=== PATIENT | male | born 1980 | race Caucasian/White ===

== ENCOUNTER 2016-12-15 14:00 | Emergency (ER) | payer BC ==
[~2016-12-15] VITALS: Ht 175.3 cm; Wt 83.0 kg
[2016-12-15] MEDS ORDERED: HYDROmorphone INJ 2 MG/ML SYR/VIAL ONE (14:01)
[2016-12-15] MEDS ORDERED: RAPID SEQUENCE INDUCTION BAG ONE (14:02)
[2016-12-15] MEDS ORDERED: SODIUM CHLORIDE 0.9% 1000ML 1,000 ML IV STA (14:02)
[2016-12-15] MEDS ORDERED: HYDROmorphone INJ 1 MG/ML SYR IV STA ×2 (14:02→14:28)
[2016-12-15] MEDS ORDERED: METOCLOPRAMIDE HCL INJ 5 MG/ML 2 ML VIAL IV STA (14:02)
[2016-12-15] MEDS ORDERED: KETAMINE HCL INJ 50 MG/ML 10 ML VIAL IV ONE (14:02)
[2016-12-15] MEDS ORDERED: KETAMINE HCL INJ 50 MG/ML 10 ML VIAL IV STA (14:03)
[2016-12-15] MEDS ORDERED: PROPOFOL IV EMULSION 10 MG/ML 20 ML VIAL IV STA (14:03)
[2016-12-15] MEDS ORDERED: KETAMINE HCL INJ 50 MG/ML 10 ML VIAL ONE (14:04)
[2016-12-15] MEDS ORDERED: PROPOFOL IV EMULSION 10 MG/ML 20 ML VIAL IV ONE (14:04)
[2016-12-15 14:14] VITALS: Ht 175.3 cm; Wt 83.0 kg
[2016-12-15 14:20] VITALS: BP 144/93; PULSE 95; O2SAT 98
[2016-12-15 14:20] LABS: BASO % 0.2 %; BASO ABS # 0.02 K/uL (0-0.2); COMPLETE YES; EOS % 0.5 %; HEMATOCRIT 47.2 % (42-52); IG% 0.3 %; LYMPH % 14.3 %; LYMPH ABS # 1.67 K/uL (1.2-3.4); MEAN CELL VOLUME 87.6 fL (80-100); MEAN CORPUSCULAR HEMOGLOBIN 30.2 pg (25-34); MEAN CORPUSCULAR HGB CONC 34.5 g/dl (32-36); MEAN PLATELET VOLUME 10.3 fL (7.4-10.4); MONO % 4.1 %; NEUT % 80.6 %; PLATELET COUNT 180 K/uL (130-400); RED BLOOD COUNT 5.39 M/uL (4.7-6.1); WHITE BLOOD COUNT 11.71 K/uL (4.8-10.8)
--- NOTE | 2016-12-15 14:22 | DIAGNOSTIC IMAGING REPORT ---
LEFT ANKLE MIN 3 VIEWS ROUTINE CLINICAL HISTORY: Pt c/ol eft ankle pain trauma. Pain. COMPARISON: None. DISCUSSION: Transverse fracture distal tibia through the growth plate. Oblique fracture with moderate distraction distal fibular shaft. Possible posterior malleolar fracture. Subtalar joint is intact. Small avulsion posterior talus. Generalized soft tissue edema. IMPRESSION: 1. Transverse nondisplaced fracture through the distal tibial growth plate. 2. Oblique fracture distal fibula. 3. Probable nondisplaced cortical fracture posterior malleolus. Electronically signed by: Luis Antunez M.D. 12/15/2016 2:21 PM Dictated Date/Time: 12/15/2016 2:18 PM
--- NOTE | 2016-12-15 14:24 | DIAGNOSTIC IMAGING REPORT ---
LEFT TIBIA/FIBULA 2 VIEWS ROUTINE CLINICAL HISTORY: Pt c/o LLE pain COMPARISON: None. DISCUSSION: Fracture of the ankle and distal fibula as has been described previously. The proximal tibia as well as fibula. Unremarkable. There is no evidence for soft tissue swelling. IMPRESSION: Fracture left ankle which of been previously described. The more proximal bony structures are unremarkable. Electronically signed by: Luis Antunez M.D. 12/15/2016 2:22 PM Dictated Date/Time: 12/15/2016 2:21 PM
[2016-12-15] MEDS ORDERED: KETOROLAC TROMETHAMINE 30 MG/ML VIAL IV STA (14:28)
[2016-12-15] MEDS ORDERED: OXYC-57 PO (14:33)
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
[2016-12-15 14:42] LABS: ALKALINE PHOSPHATASE 55 U/L (45-117); ALT/SGPT 34 U/L (12-78); AST/SGOT 26 U/L (15-37); BLOOD UREA NITROGEN 20 mg/dl (7-18); BUN/CREATININE RATIO 16.6 (10-20); CALCIUM 8.8 mg/dl (8.5-10.1); CARBON DIOXIDE 28 mmol/L (21-32); CHLORIDE 110 mmol/L (98-107); GLUCOSE 96 mg/dl (70-99); POTASSIUM 4.2 mmol/L (3.5-5.1); SODIUM 143 mmol/L (136-145)
[2016-12-15 15:53] VITALS: BP 100/66; PULSE 60; TEMP 36.5; O2SAT 95
--- NOTE | 2016-12-15 16:05 | EMERGENCY ROOM VISIT NOTE ---
Post-Moderate Sedation Plan General Date of Moderate Sedation Dec 15, 2016. Vital Signs: Vital Signs Past 12 Hours Date Time Temp Pulse Resp B/P (MAP) Pulse Ox O2 Delivery O2 Flow Rate FiO2 12/15/16 15:53 36.5 60 18 100/66 95 12/15/16 15:38 60 18 100/66 95 Room Air 12/15/16 15:14 68 18 133/71 97 12/15/16 14:55 73 17 96 12/15/16 14:51 110/70 12/15/16 14:50 77 5 99 12/15/16 14:46 128/85 12/15/16 14:45 71 25 98 12/15/16 14:41 129/71 12/15/16 14:40 82 17 99 12/15/16 14:36 148/89 12/15/16 14:35 92 38 99 12/15/16 14:31 149/85 12/15/16 14:30 102 19 99 12/15/16 14:26 148/93 12/15/16 14:25 99 23 98 12/15/16 14:21 148/121 12/15/16 14:20 95 16 144/93 98 Nasal Cannula 2.0 12/15/16 14:20 101 19 99 12/15/16 14:16 144/93 12/15/16 14:15 80 18 98 12/15/16 14:14 100 Room Air 12/15/16 14:12 134/80 12/15/16 14:10 122/73 12/15/16 14:09 93 12/15/16 14:00 99 Nasal Cannula 12/15/16 14:00 99 Nasal Cannula 4.0 Review - Discharge Plan Post Moderate Sedation Plan: On clinical assessment, the patient appears to have tolerated the conscious sedation without complications. Patient is recovering as anticipated. Patient will continue to be monitored by nursing and may be discharged when conscious sedation discharge criteria are met.
--- NOTE | 2016-12-15 16:05 | EMERGENCY ROOM VISIT NOTE ---
Pre-Mod Sedation Assessment General Date of Moderate Sedation: Dec 15, 2016. Vital Signs: Vital Signs Past 12 Hours Date Time Temp Pulse Resp B/P (MAP) Pulse Ox O2 Delivery O2 Flow Rate FiO2 12/15/16 15:53 36.5 60 18 100/66 95 12/15/16 15:38 60 18 100/66 95 Room Air 12/15/16 15:14 68 18 133/71 97 12/15/16 14:55 73 17 96 12/15/16 14:51 110/70 12/15/16 14:50 77 5 99 12/15/16 14:46 128/85 12/15/16 14:45 71 25 98 12/15/16 14:41 129/71 12/15/16 14:40 82 17 99 12/15/16 14:36 148/89 12/15/16 14:35 92 38 99 12/15/16 14:31 149/85 12/15/16 14:30 102 19 99 12/15/16 14:26 148/93 12/15/16 14:25 99 23 98 12/15/16 14:21 148/121 12/15/16 14:20 95 16 144/93 98 Nasal Cannula 2.0 12/15/16 14:20 101 19 99 12/15/16 14:16 144/93 12/15/16 14:15 80 18 98 12/15/16 14:14 100 Room Air 12/15/16 14:12 134/80 12/15/16 14:10 122/73 12/15/16 14:09 93 12/15/16 14:00 99 Nasal Cannula 12/15/16 14:00 99 Nasal Cannula 4.0 Review Cardiovascular: regular rate, rhythm, no edema, no gallop, no JVD, no murmur, normal peripheral pulses Abdomen: normal bowel sounds, non tender, soft, no organomegaly, no pulsatile mass, normal rectal exam, occult blood negative Lungs: chest non-tender, lungs clear, normal breath sounds, no respiratory distress, no accessory muscle use Airway Class: I Pre-Sedation Airway Assessment Short Thick Neck: No Hx of Sleep Apnea: No Smoking Status: Current Some Day Smoker Mallampati Classification: Class I (Sft palate,uvula,fauces,pillar) ASA Classification: Class I Procedure Planning Contraindications-for Mod Sed: None Yes Notes The planned sedation has been discussed with the patient and consent obtained. I have identified the patient, determined the appropriateness of sedation and have assessed the patient immediately prior to the procedure. All medicine(s) and interventions are by my order.
--- NOTE | 2017-01-23 20:29 | EMERGENCY ROOM VISIT NOTE ---
ED Visit Note I was asked by Dr. Torres, ED attending physician, to assist with a left ankle fracture dislocation with vascular compromise. Dr. Torres performed conscious sedation while I performed reduction procedure. Please see Dr. Torres's dictation regarding sedation details. The ankle was easily reduced with postoperative x-rays showing a transverse nondisplaced fracture through the distal tibia growth plate, an oblique fracture of the distal fibula, and nondisplaced cortical fracture of the posterior malleolus. The dislocation was reduced. Post reduction pedal pulses were restored and intact. Please see Dr. Torres's dictation for further treatment and final disposition.
== END 2016-12-15 15:55 | disposition home or self-care (01) ==
LOC: C.EDB 14:01
DX: S82.392A Other fracture of lower end of left tibia, initial encounter for closed fracture (principal); S93.05XA Dislocation of left ankle joint, initial encounter; V86.59XA Driver of other special all-terrain or other off-road motor vehicle injured in nontraffic accident, initial encounter; F17.210 Nicotine dependence, cigarettes, uncomplicated